=== PATIENT | female | born 1945 | race Caucasian/White ===

== ENCOUNTER 2018-11-21 23:51 | Emergency (ER) | payer MEDICARE ==
[~2018-11-21] VITALS: Ht 149.9 cm; Wt 83.5 kg
[2018-11-22] VITALS: BP_SYST 159
[2018-11-22] MEDS ORDERED: ATEN50TA PO (00:13)
[2018-11-22] MEDS ORDERED: PRAV40TA63 PO (00:13)
[2018-11-22] MEDS ORDERED: GLU500 PO (00:13)
[2018-11-22] MEDS ORDERED: GABA-531 PO (00:14)
[2018-11-22] MEDS ORDERED: DULO60CA41 PO (00:15)
[2018-11-22] MEDS ORDERED: IBUPROFEN 600 MG TABLET PO ONE (01:45)
[2018-11-22 03:08] VITALS: BP_SYST 148
== END 2018-11-22 03:08 | disposition home or self-care (01) ==
LOC: SED 23:51
DX: S20.211A Contusion of right front wall of thorax, initial encounter (principal); R04.0 Epistaxis; E11.9 Type 2 diabetes mellitus without complications; I10 Essential (primary) hypertension; Z79.84 Long term (current) use of oral hypoglycemic drugs; Z79.899 Other long term (current) drug therapy; Z88.8 Allergy status to other drugs, medicaments and biological substances; W18.2XXA Fall in (into) shower or empty bathtub, initial encounter; Y93.89 Activity, other specified; Y92.091 Bathroom in other non-institutional residence as the place of occurrence of the external cause; Y99.8 Other external cause status
CPT/HCPCS: 71100; 72100-TC; 99283

== ENCOUNTER 2020-02-02 14:49 | Emergency (ER) | payer MEDICARE ==
[~2020-02-02] VITALS: Ht 149.9 cm; Wt 83.9 kg
[2020-02-02 14:49] VITALS: BP_SYST 152
[~2020-02-02 14:49] MED LIST: ATEN50TA PO; DULO60CA41 PO; GABA-531 PO; GLU500 PO; PRAV40TA63 PO
--- NOTE | 2020-02-02 14:49 | NUR ---
Patient to ER bed 3 to gown for evaluation. Side rails up. Report given to CHERYL Pearl.
--- NOTE | 2020-02-02 14:50 | NUR ---
Pt bib EMS from home with c/o Fall. Reports falling while getting into a car and hitting her head. Denies LOC. V/S stable, pt is afebrile. Currently resting in bed, will continue to monitor.
--- NOTE | 2020-02-02 15:00 | NUR ---
ER Dr. Ospina at bedside examining patient.
--- NOTE | 2020-02-02 15:10 | NUR ---
Patient transported to radiology via wheelchair, accompanied by staff.
--- NOTE | 2020-02-02 16:40 | NUR ---
Patient given written and verbal discharge instructions and verbalizes understanding. ER MD discussed with patient the results and treatment provided. Patient in stable condition. ID arm band removed. RX of Naprosyn given. Patient educated on pain management and to follow up with PMD. Pain Scale 0. Opportunity for questions provided and answered. Medication side effect fact sheet provided.
[2020-02-02 16:42] VITALS: BP_SYST 152
== END 2020-02-02 16:42 | disposition home or self-care (01) ==
LOC: SED 14:49
DX: S13.4XXA Sprain of ligaments of cervical spine, initial encounter (principal); S00.03XA Contusion of scalp, initial encounter; I10 Essential (primary) hypertension; E11.9 Type 2 diabetes mellitus without complications; E78.5 Hyperlipidemia, unspecified; Z79.899 Other long term (current) drug therapy; Z88.6 Allergy status to analgesic agent; Z88.8 Allergy status to other drugs, medicaments and biological substances; V09.9XXA Pedestrian injured in unspecified transport accident, initial encounter; Y93.89 Activity, other specified; Y92.89 Other specified places as the place of occurrence of the external cause; Y99.8 Other external cause status
CPT/HCPCS: 70450-TC; 72125-TC; 99285